=== PATIENT | female | born 1970 | race Caucasian/White ===

== ENCOUNTER 2016-08-09 09:40 | Emergency (ER) | payer MEDICAID ==
[2015-08-30 00:34] VITALS: BMI 19.8
[~2016-08-09 09:40] MED LIST: ASPIRIN EC81 M1 PO; CRESTOR10 MG PO; MELATONIN 10 M1 EACH PO; NEXIUM40 MG PO; PROTONIX40 MG PO; ULTRAM50 MG PO; VISTARIL25 MG PO; VITAMIN C1000 MG PO; ZANAFLEX4 MG PO
== END 2016-08-09 12:55 | disposition home or self-care (01) ==
LOC: D.ER 09:40
DX: M54.5 Low back pain (principal); S39.012A Strain of muscle, fascia and tendon of lower back, initial encounter; X50.0XXA Overexertion from strenuous movement or load, initial encounter; X50.9XXA Other and unspecified overexertion or strenuous movements or postures, initial encounter; Y93.89 Activity, other specified; Y92.019 Unspecified place in single-family (private) house as the place of occurrence of the external cause; K21.9 Gastro-esophageal reflux disease without esophagitis; I10 Essential (primary) hypertension; K27.9 Peptic ulcer, site unspecified, unspecified as acute or chronic, without hemorrhage or perforation

== ENCOUNTER 2016-08-20 19:18 | Emergency (ER) | payer MEDICAID ==
[2015-08-30 00:34] VITALS: BMI 19.8
[2016-08-20 20:20] LABS: EOSINOPHILS 4.9 % (0-7); HEMATOCRIT 43.4 % (36.0-48.0); HEMOGLOBIN 14.7 g/dL (12-16); LYMPHOCYTES 44.5 % (15-50); MCH 34.5 pg (26.0-34.0); MCHC 33.9 g/dL (31.0-37.0); MCV 101.9 fL (80.0-100.0); MEAN PLATELET VOLUME 10.8 fL (7.4-10.4); MONOCYTES 9.2 % (2-11); NEUTROPHILS 40.4 % (40-80); PLATELET COUNT 268 10x3/uL (130-400); RBC 4.26 10x6/uL (4.00-5.40); RDW 13.5 % (11.5-14.5); WBC 6.2 10x3/uL (4.8-10.8)
[2016-08-20 20:38] LABS: ALBUMIN 3.7 g/dL (3.4-5.0); ALKALINE PHOSPHATASE 70 U/L (46-116); ALT (SGPT) 88 U/L (10-68); BILIRUBIN - TOTAL 0.45 mg/dL (0.2-1.3); CALC OSMOLALITY 282 mosm/kg (275-300); CALCIUM 8.9 mg/dL (8.5-10.1); CARBON DIOXIDE 26.5 mmol/L (21.0-32.0); CHLORIDE - SERUM 106 mmol/L (98-107); CREATININE - SERUM 1.1 mg/dL (0.6-1.3); GLUCOSE 90 mg/dL (74-106); POTASSIUM - SERUM 4.2 mmol/L (3.5-5.1); PROTEIN - SERUM 7.3 g/dL (6.4-8.2); SODIUM 143 mmol/L (136-145); UREA NITROGEN 7 mg/dL (7-18); eGFR NON AFRICAN AMERICAN 57 mL/min (90-120)
[2016-08-20 20:49] LABS: CHOL - HDL RATIO 2.8 ratio (2.3-4.1); CHOLESTEROL, TOTAL 205 mg/dL (0-200); CREATINE KINASE 79 UL (21-215); HDL CHOLESTEROL 74 mg/dL (32-96); LDL CHOLESTEROL 110 mg/dL (0-100); LDL-HDL RATIO 1.5 ratio (1.5-3.5); TRIGLYCERIDE 108 mg/dL (30-200)
[2016-08-20 20:50] LABS: TROPONIN-I < 0.017 ng/mL (0.000-0.060)
== END 2016-08-20 22:02 | disposition home or self-care (01) ==
LOC: D.ER 19:18
PROVIDERS: Family Medicine
DX: R07.89 Other chest pain (principal); F17.200 Nicotine dependence, unspecified, uncomplicated; I10 Essential (primary) hypertension; K21.9 Gastro-esophageal reflux disease without esophagitis; K27.9 Peptic ulcer, site unspecified, unspecified as acute or chronic, without hemorrhage or perforation

== ENCOUNTER 2016-09-11 09:44 | Emergency (ER) | payer MEDICAID ==
[2015-08-30 00:34] VITALS: BMI 19.8
[2016-09-11 11:08] LABS: APPEARANCE HAZY (CLEAR); BILIRUBIN NEGATIVE (NEGATIVE); COLOR STRAW (YELLOW); GLUCOSE NEGATIVE (NEGATIVE); KETONE NEGATIVE (NEGATIVE); LEUKOCYTE ESTERASE NEGATIVE (NEGATIVE); NITRITE NEGATIVE (NEGATIVE); PROTEIN NEGATIVE (NEGATIVE); SPECIFIC GRAVITY 1.005 (1.005-1.020); UROBILINOGEN NORMAL (NORMAL)
== END 2016-09-11 12:55 | disposition left against medical advice (07) ==
LOC: D.ER 09:44
PROVIDERS: Emergency Medicine
DX: S39.92XA Unspecified injury of lower back, initial encounter (principal); X58.XXXA Exposure to other specified factors, initial encounter; Y93.9 Activity, unspecified; Y92.9 Unspecified place or not applicable

== ENCOUNTER 2016-09-17 14:51 | Emergency (ER) | payer MEDICAID ==
[2015-08-30 00:34] VITALS: BMI 19.8
== END 2016-09-17 16:44 | disposition home or self-care (01) ==
LOC: D.ER 14:51
DX: S61.211A Laceration without foreign body of left index finger without damage to nail, initial encounter (principal); W45.8XXA Other foreign body or object entering through skin, initial encounter; Y93.89 Activity, other specified; Y92.019 Unspecified place in single-family (private) house as the place of occurrence of the external cause; F17.200 Nicotine dependence, unspecified, uncomplicated; K21.9 Gastro-esophageal reflux disease without esophagitis; I10 Essential (primary) hypertension; K27.9 Peptic ulcer, site unspecified, unspecified as acute or chronic, without hemorrhage or perforation

== ENCOUNTER 2016-12-15 08:44 | Emergency (ER) | payer MEDICAID ==
[2015-08-30 00:34] VITALS: BMI 19.8
--- NOTE | ~2016-12-15 | CN ---
PATIENT NAME:SKYE ORANTES MEDICAL RECORD: [id number] : 74 LOCATION:D.ER ADMIT DATE: ACCOUNT: [id number] CONSULTING PHYSICIAN: DANIEL NOLASCO MD REFERRING PHYSICIAN: JOVAN GUTIERRES MD DATE OF CONSULTATION: 12/15/2016 Cardiology Consultation ADMITTING DIAGNOSES: 1. Chest pain of unknown etiology. 2. Gastroesophageal reflux disease. 3. Hypertension. 4. Hyperlipidemia. 5. Smoking history. 6. Family history of coronary artery disease. HISTORY OF PRESENT ILLNESS: Ms. Orantes presents with chest pain, has been on and off for the past week. It did not really worsen, it just persisted. She is concerned with her multiple risk factors, this could be cardiac. However, the pain did start after moving furniture. She has twin 7-year-olds, the pain worsened after picking up one of the 7-year-olds. PHYSICAL EXAMINATION: GENERAL APPEARANCE: Well-nourished, well-developed, appears stated age. Level of distress, comfortable. PSYCHIATRIC: Mental status, alert, normal affect. Orientation, oriented to time, place and person. EYES: Lids and conjunctiva, noninjected. No discharge, no pallor. ENT: Lips, teeth, gums, normal dentition. Oropharynx, no cyanosis, no pallor. NECK: Carotid arteries, bilateral normal upstroke, no bruits, no thrills. JUGULAR VEINS: No jugular venous pressure or distention. CERVICAL LYMPH NODES: Nontender, nonenlarged. THYROID: Not enlarged. Nontender. No nodules. LUNGS: Respiratory effort, unlabored. CHEST: Normal curvature. No thoracic deformity. No chest wall tenderness. Percussion, resonant. Auscultation, clear. No wheezes, no rales, no rhonchi. CARDIOVASCULAR: Precordial exam, nondisplaced. No heaves or pericardial thrills. Rate and rhythm, regular. Heart sounds, normal S1, normal S2. No S3, no gallop, no rub. Systolic murmur, not heard. Diastolic murmur, not heard. EXTREMITIES: No cyanosis, no edema. Peripheral pulses, full and equal in all extremities, except as noted. No bruits appreciated. ABDOMEN: Soft, nondistended. Normal aorta. No bruit. Nontender. No masses. Liver, nontender, no hepatomegaly. Spleen, nontender, no splenomegaly. MUSCULOSKELETAL: No joint tenderness. No joint swelling. No erythema. NEUROLOGICAL: Normal gait, normal strength, normal tone. SKIN: Warm and dry. REVIEW OF SYSTEMS: The patient reports easy bruising but reports no swollen glands. The patient reports no fever, no night sweats, no significant weight gain, no significant weight loss. No significant exercise tolerance. The patient reports no dry eyes, no irritation, no vision change. Patient reports no difficulty hearing and no ear pain. Patient reports no frequent nose bleeds or nose and sinus problems. Patient reports on arm pain on exertion. No shortness of breath while lying down. No history of heart murmur. Patient CONSULT REPORT [id number] SKYE ORANTES reports no cough, no wheezing or coughing up blood. Patient reports no abdominal pain, no vomiting. Normal appetite. No diarrhea and not vomiting blood. No nausea and no constipation. Patient reports no incontinence. No difficulty urinating. No hematuria. No increased frequency. Patient reports no muscle aches. No weakness, no arthralgias, no back pain. No swelling of the extremities. Patient reports no abnormal mole, no jaundice, no rashes. Reports no loss of consciousness. No weakness and no numbness. No seizures, dizziness, or headaches. The patient reports no depression, no sleep disturbance, feeling safe in a relationship and no alcohol abuse. Patient reports on fatigue. Reports no runny nose or sinus pressure. No itching, no hives, and no frequent sneezing. OVERALL IMPRESSION: Chest pain, most likely musculoskeletal. EKG is normal. Troponin is normal. We will perform stress testing with the EKG imaging. Further care depends upon findings of the stress test. TRANSINT:[id number] Voice Confirmation ID: [id number] DOCUMENT ID: [id number] DANIEL NOLASCO MD CC: [id number] DICTATION DATE: 12/15/16 1205 PLANNING COORDINATOR: 12/15/16 5826 [facility] 12/15/16 [place] [id number] [place] [id number]
--- NOTE | ~2016-12-15 | ST ---
PATIENT:SKYE ORANTES MEDICAL RECORD: [id number] SEX: F LOCATION:.ER ORDER #: ADMISSION DATE: 12/15/16 AGE OF PATIENT: 46 REFERRING PHYSICIAN: INTERPRETING PHYSICIAN: DANIEL NOLASCO MD DATE OF SERVICE: 12/15/2016 INDICATION: Chest pain of unknown etiology. She was exercised on standard Dima protocol for 6 minutes, terminated due to achievement of maximum heart rate response with no EKG changes, no dysrhythmias. No worsening of her musculoskeletal chest pain. OVERALL IMPRESSION: Negative for inducible ischemia. His chest pain is musculoskeletal in nature and noncardiac. TRANSINT:[id number] Voice Confirmation ID: [id number] DOCUMENT ID: [id number] DANIEL NOLASCO MD CC: [id number] DICTATION DATE: 12/15/16 1205 REDRYING MACHINE OPERATOR: 12/16/16 0638 [facility] ER 12/15/16 [facility] [address] [place] [address]
[2016-12-15 09:15] LABS: BASOPHILS 0.6 % (0-2); EOSINOPHILS 2.4 % (0-7); HEMATOCRIT 45.5 % (36.0-48.0); HEMOGLOBIN 15.5 g/dL (12-16); IMMATURE GRANULOCYTES 0.1 % (0-5); LYMPHOCYTES 30.4 % (15-50); MCH 35.1 pg (26.0-34.0); MCHC 34.1 g/dL (31.0-37.0); MCV 102.9 fL (80.0-100.0); MEAN PLATELET VOLUME 11.1 fL (7.4-10.4); MONOCYTES 10.5 % (2-11); PLATELET COUNT 260 10x3/uL (130-400); RBC 4.42 10x6/uL (4.00-5.40); RDW 12.1 % (11.5-14.5); WBC 6.7 10x3/uL (4.8-10.8)
[2016-12-15 09:28] LABS: ALBUMIN 3.8 g/dL (3.4-5.0); ALKALINE PHOSPHATASE 82 U/L (46-116); ALT (SGPT) 87 U/L (10-68); BILIRUBIN - TOTAL 0.23 mg/dL (0.2-1.3); CALC OSMOLALITY 277 mosm/kg (275-300); CALCIUM 9.2 mg/dL (8.5-10.1); CARBON DIOXIDE 30.8 mmol/L (21.0-32.0); CHLORIDE - SERUM 104 mmol/L (98-107); CREATININE - SERUM 0.8 mg/dL (0.6-1.3); GLUCOSE 109 mg/dL (74-106); POTASSIUM - SERUM 4.3 mmol/L (3.5-5.1); PROTEIN - SERUM 7.5 g/dL (6.4-8.2); SODIUM 139 mmol/L (136-145); UREA NITROGEN 9 mg/dL (7-18); eGFR NON AFRICAN AMERICAN 82 mL/min (90-120)
[2016-12-15 09:47] LABS: CKMB 0.5 U/L (0.0-3.6); CREATINE KINASE 60 UL (21-215); TROPONIN-I < 0.017 ng/mL (0.000-0.060)
== END 2016-12-15 13:00 | disposition home or self-care (01) ==
LOC: D.ER 08:44
PROVIDERS: Emergency Medicine
DX: R07.9 Chest pain, unspecified (principal); R55 Syncope and collapse; I10 Essential (primary) hypertension; K27.9 Peptic ulcer, site unspecified, unspecified as acute or chronic, without hemorrhage or perforation; F17.200 Nicotine dependence, unspecified, uncomplicated

== ENCOUNTER 2018-03-02 21:59 | Emergency (ER) | payer MEDICAID ==
[~2018-03-02] VITALS: Ht 170.2 cm; Wt 46.3 kg
[2018-03-02 22:07] VITALS: Ht 170.2 cm; Wt 46.3 kg
[2018-03-03] MEDS ORDERED: TYLENOL W/CODEI1 TAB PO (00:07)
[2018-03-03] MEDS ORDERED: ROBAXIN-750750 MG PO (00:07)
[2018-03-03 01:59] VITALS: BP 93/65
[2018-03-03] MEDS ORDERED: KLONOPIN1 MG PO (18:44)
[2018-03-03] MEDS ORDERED: NORCO 7.5/325 T1 TA1 PO (18:44)
== END 2018-03-03 01:10 | disposition home or self-care (01) ==
LOC: D.ER 21:59
DX: R07.89 Other chest pain (principal); W18.2XXA Fall in (into) shower or empty bathtub, initial encounter; Y93.E1 Activity, personal bathing and showering; Y92.012 Bathroom of single-family (private) house as the place of occurrence of the external cause; Z86.73 Personal history of transient ischemic attack (TIA), and cerebral infarction without residual deficits; I10 Essential (primary) hypertension; F17.200 Nicotine dependence, unspecified, uncomplicated

== ENCOUNTER 2018-03-03 18:33 | Inpatient (IN) | payer MEDICAID ==
[~2018-03-03] VITALS: Ht 170.2 cm; Wt 45.8 kg
[2018-03-03] VITALS (9 sets, daily range): BP systolic 93–110; BP diastolic 62–77; BMI 15.8
--- NOTE | ~2018-03-03 | MORECARE ---
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 Yes * How many steps to enterexit or inside your home? NONE * PCP PT REPORTS SHE "FIRED DR. CHIU" AND HAS NO PRIMARY CARE DOCTOR * [facility] [place] * Preadmission Environment Home with Family * ADLs Independent * Equipment None * Other Equipment NO MEDICAL EQUIPMENT PROVIDER PREFERENCE * List name and contact numbers for known caregivers / representatives who currently or will assist patient after discharge: MARTHA FITZGERALDAN, FRIEND, * Verbal permission to speak to the caregivers and representatives has been obtained from the patient. Yes * Community resources currently utilized None * Please name any agencies selected above. NONE * Additional services required to return to the preadmission environment? No * Can the patient safely return to the preadmission environment? Yes * Has this patient been hospitalized within the prior 30 days at any hospital? No Patient Name: SKYE LANCE Page [id number] All edits/amendments must be made on the electronic document DICTATION DATE: 03/08/18 1404 CUFF CUTTER: 03/08/18 1404 RPT#: [id number] DC DATE: STATUS: ADM IN [facility] [address] [place] [address] END OF REPORT
--- NOTE | ~2018-03-03 | OP ---
PATIENT NAME: SKYE LANCE MEDICAL RECORD: [id number] :74 LOCATION:D. D.2118 ADMISSION DATE:03/03/18 SURGEON: BENITO QUIÑONES MD DATE OF OPERATION: 03/03/2018 PREOPERATIVE DIAGNOSIS: Traumatic left pneumothorax, large. POSTOPERATIVE DIAGNOSES: Traumatic left pneumothorax, large. PROCEDURE: Placement of left 28-Hebrew chest tube. SURGEON: Benito Quiñones MD TWENTY ONE DEALER: None. BLOOD LOSS: Minimal. ANESTHESIA: IV sedation with local. COMPLICATIONS: None. The risks, possible complications, and alternatives to the procedure were explained to the patient. She elects to proceed. The discussion specifically included, but was not limited to, bleeding, requiring emergency reoperation; infection; great vessel injury as well as possible need for further operation or further procedures. The patient was seen in her ER bed. The entire procedure was performed in the presence of a female nurse. High-flow oxygen was instituted. Her left upper extremity was abducted at 90 degrees to the patient's trunk. IV sedation was induced. The left chest was sterilely prepped and draped. A local anesthetic was used to infiltrate skin and subcutaneous tissues at approximately the level of the seventh intercostal space in the midaxillary line. A transverse incision was accomplished. I entered the right hemithorax over a rib. I palpated the liver. I was above the diaphragm. I then advanced a 28-Hebrew chest tube to 14 cm. It was sutured in place with a 2-0 silk. A sterile dressing was applied. The chest tube was attached to the suction. A followup chest x-ray revealed a resolving pneumothorax; however, there was still an apical pneumothorax present. TRANSINT:[id number] Voice Confirmation ID: [id number] DOCUMENT ID: [id number] BENITO QUIÑONES MD at 1024 CC: [id number] DICTATION DATE: 03/04/18 1132 BOBBIN WASHER: 03/04/18 1330 [facility] IN 03/08/[address] [id number]
[~2018-03-03 18:33] MED LIST changes: +ROBAXIN-750750 MG PO; +TYLENOL W/CODEI1 TAB PO
[2018-03-03] MEDS ORDERED: KLONOPIN1 MG PO (18:44)
[2018-03-03] MEDS ORDERED: NORCO 7.5/325 T1 TA1 PO (18:44)
[2018-03-03 19:20] LABS: BASOPHILS 0.3 % (0-2); EOSINOPHILS 3.5 % (0-7); HEMATOCRIT 39.2 % (36.0-48.0); HEMOGLOBIN 13.1 g/dL (12-16); LYMPHOCYTES 41.3 % (15-50); MCH 32.2 pg (26.0-34.0); MCHC 33.4 g/dL (31.0-37.0); MCV 96.3 fL (80.0-100.0); MEAN PLATELET VOLUME 10.6 fL (7.4-10.4); MONOCYTES 11.3 % (2-11); NEUTROPHILS 43.6 % (40-80); PLATELET COUNT 225 10x3/uL (130-400); RBC 4.07 10x6/uL (4.00-5.40); RDW 12.7 % (11.5-14.5); WBC 6.8 10x3/uL (4.8-10.8)
[2018-03-03 19:41] LABS: ALBUMIN 3.4 g/dL (3.4-5.0); ALKALINE PHOSPHATASE 80 U/L (46-116); ALT (SGPT) 46 U/L (10-68); BILIRUBIN - TOTAL 0.31 mg/dL (0.2-1.3); CALC OSMOLALITY 278 mosm/kg (275-300); CALCIUM 8.8 mg/dL (8.5-10.1); CARBON DIOXIDE 34.3 mmol/L (21.0-32.0); CHLORIDE - SERUM 105 mmol/L (98-107); CREATININE - SERUM 0.9 mg/dL (0.6-1.3); GLUCOSE 94 mg/dL (74-106); POTASSIUM - SERUM 3.4 mmol/L (3.5-5.1); PROTEIN - SERUM 6.7 g/dL (6.4-8.2); SODIUM 140 mmol/L (136-145); UREA NITROGEN 13 mg/dL (7-18); eGFR NON AFRICAN AMERICAN 71 mL/min (90-120)
[2018-03-03 19:47] LABS: TROPONIN-I < 0.017 ng/mL (0.000-0.060)
[2018-03-03 22:01] LABS: UDS - AMPHET POSITIVE QUAL (NEGATIVE); UDS - BARB NEGATIVE QUAL (NEGATIVE); UDS - BENZO POSITIVE QUAL (NEGATIVE); UDS - COCAINE NEGATIVE QUAL (NEGATIVE); UDS - OPIATE POSITIVE QUAL (NEGATIVE); UDS - PCP NEGATIVE QUAL (NEGATIVE); UDS - THC NEGATIVE QUAL (NEGATIVE)
[2018-03-03 22:03] LABS: APPEARANCE CLEAR (CLEAR); BILIRUBIN NEGATIVE (NEGATIVE); COLOR DK YELLOW (YELLOW); GLUCOSE NEGATIVE (NEGATIVE); KETONE NEGATIVE (NEGATIVE); NITRITE NEGATIVE (NEGATIVE); PROTEIN NEGATIVE (NEGATIVE); SPECIFIC GRAVITY 1.025 (1.005-1.020); UROBILINOGEN NORMAL (NORMAL)
[2018-03-04 00:30] VITALS: BP 108/80
[2018-03-04 04:30] VITALS: BP 115/81
[2018-03-04 07:20] LABS: BASOPHILS 0.2 % (0-2); EOSINOPHILS 3.6 % (0-7); HEMATOCRIT 40.3 % (36.0-48.0); IMMATURE GRANULOCYTES 0.1 % (0-5); LYMPHOCYTES 34.1 % (15-50); MCH 31.5 pg (26.0-34.0); MCHC 32.3 g/dL (31.0-37.0); MCV 97.6 fL (80.0-100.0); MEAN PLATELET VOLUME 11.4 fL (7.4-10.4); MONOCYTES 8.9 % (2-11); NEUTROPHILS 53.1 % (40-80); PLATELET COUNT 222 10x3/uL (130-400); RBC 4.13 10x6/uL (4.00-5.40); RDW 12.7 % (11.5-14.5); WBC 8.3 10x3/uL (4.8-10.8)
[2018-03-04 07:41] LABS: ALKALINE PHOSPHATASE 80 U/L (46-116); ALT (SGPT) 43 U/L (10-68); BILIRUBIN - TOTAL 0.42 mg/dL (0.2-1.3); CALCIUM 8.2 mg/dL (8.5-10.1); CARBON DIOXIDE 33.3 mmol/L (21.0-32.0); CHLORIDE - SERUM 104 mmol/L (98-107); CREATININE - SERUM 0.8 mg/dL (0.6-1.3); GLUCOSE 84 mg/dL (74-106); PHOSPHOROUS 4.3 mg/dL (2.5-4.9); POTASSIUM - SERUM 3.6 mmol/L (3.5-5.1); PROTEIN - SERUM 6.2 g/dL (6.4-8.2); SODIUM 140 mmol/L (136-145); eGFR NON AFRICAN AMERICAN 82 mL/min (90-120)
[2018-03-04 07:42] LABS: CALC OSMOLALITY 275 mosm/kg (275-300); TROPONIN-I < 0.017 ng/mL (0.000-0.060); UREA NITROGEN 7 mg/dL (7-18)
[2018-03-04 08:46] VITALS: BP 118/77
[2018-03-04 11:45] VITALS: BP 116/76
[2018-03-04 14:29] VITALS: Ht 170.2 cm; Wt 45.8 kg
[2018-03-04 15:59] VITALS: BP 113/76
[2018-03-04 20:00] VITALS: BP 134/68
[2018-03-05] VITALS: BP 103/69
[2018-03-05 06:37] VITALS: BP 120/76
[2018-03-05 07:30] VITALS: BP 121/72
[2018-03-05 11:00] VITALS: BP 128/61
[2018-03-05 15:47] VITALS: BP 120/74
[2018-03-05 20:00] VITALS: BP 124/83
[2018-03-06] VITALS: BP 127/62
[2018-03-06 04:00] VITALS: BP 135/71
[2018-03-06 06:16] LABS: HEPATITIS C ANTIBODY >11.0 (0.0-0.9)
[2018-03-06 07:57] VITALS: BP 115/80
[2018-03-06 12:02] VITALS: BP 108/71
[2018-03-06 20:06] VITALS: BP 147/66
[2018-03-07] VITALS: BP 120/82
[2018-03-07 04:00] VITALS: BP 143/81
[2018-03-07 07:46] VITALS: BP 131/83
[2018-03-07 11:43] VITALS: BP 98/64
[2018-03-07 20:00] VITALS: BP 107/64
[2018-03-08 04:00] VITALS: BP 96/36
[2018-03-08 07:50] VITALS: BP 129/76
[2018-03-08] MEDS ORDERED: DILAUDID2 MG PO ×2 (10:47→14:20)
[2018-03-08 11:12] VITALS: BP 119/66
== END 2018-03-08 14:35 | disposition home or self-care (01) | DRG 200 ==
LOC: D.ER 18:33 → D.M2 21:19 → D.SDCHOLD 03-05 10:39 → D.M2 03-05 10:39
PROVIDERS: Emergency Medicine; Surgery
PROC: 0W9B30Z Drainage of Left Pleural Cavity with Drainage Device, Percutaneous Approach (ICD-10-PCS; principal; 2018-03-03)
DX: S27.0XXA Traumatic pneumothorax, initial encounter (principal); S22.42XA Multiple fractures of ribs, left side, initial encounter for closed fracture; W18.2XXA Fall in (into) shower or empty bathtub, initial encounter; N83.202 Unspecified ovarian cyst, left side; I10 Essential (primary) hypertension; Z86.73 Personal history of transient ischemic attack (TIA), and cerebral infarction without residual deficits